=== PATIENT | male | born 1985 | race Caucasian/White ===

== ENCOUNTER 2018-08-14 19:15 | Inpatient (IN) | payer OTHER, SELFPAY ==
[~2018-08-14 19:15] MED LIST: ISOVUE-370 76%-LOCM 1 ML ONE
[2018-08-14] MEDS ORDERED: Lidocaine 1% w/Epinephrine 1:100K 20 ML VIAL ONE (19:25)
[2018-08-14] MEDS ORDERED: CEFAZOLIN 1 GM VIAL ONE (19:25)
[2018-08-14] MEDS ORDERED: Ketorolac Tromethamine 30 MG/ML VIAL ONE (19:29)
[2018-08-14] MEDS ORDERED: Morphine 2 MG/ML SYRINGE ONE ×3 (19:29→21:01)
[2018-08-14 19:46] LABS: #Basophils 0.2 thou/uL (0.0-0.2); #Eosinphils 0.2 thou/uL (0.0-0.7); #Lymphocytes 3.1 thou/uL (1.20-3.40); #Monocytes 0.9 thou/uL (0.11-0.59); #Neutrophils 13.6 thou/uL (1.40-6.50); %Basophils 0.8 % (0.0-1.0); %Eosinophils 0.9 % (0.0-10.0); %Lymphocytes 17.1 % (21.0-51.0); %Neutrophils 76.2 % (42.0-75.0); Hemoglobin 16.7 g/dL (14.0-18.0); Mean Corpuscular Hemoglobin 31.7 pg (27.0-31.0); Mean Corpuscular Volume 93.2 fL (78.0-98.0); Mean Platelet Volume 8.1 fL (7.4-10.4); Platelet Count 307 thou/uL (130-400); Red Blood Cell (RBC) Count 5.26 mill/uL (4.70-6.10); White Blood Cell (WBC) Count 17.9 thou/uL (4.8-10.8)
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
[2018-08-14 19:55] LABS: Bilirubin Negative (Negative); Blood, Urine Trace (Negative); Clarity CLEAR (Clear); Glucose, Urine (Dipstick) Negative (Negative); Leukocyte Negative (Negative); Nitrite Negative (Negative); Protein, Urine (Dipstick) Negative (Neg-Trace); Specific Gravity, Urine 1.003 (1.002-1.036); Urobilinogen 0.2 mg/dL (0.2-1.0)
[2018-08-14 19:58] LABS: Bacteria/HPF None Seen HPF (None Seen); Hyaline Casts/LPF 0-3 HYALINE CAST LPF (0-3 Hyaline); Pathc Cast-AUWi Flag 0.43 (0-2.49); RBC/HPF 0-3 HPF (0-3); Squamous Epithelial None Seen HPF (0-3); WBC/HPF None Seen HPF (0-3)
[2018-08-14 20:03] LABS: Amphetamine Not Detected (NotDetected); Barbiturates Screen Not Detected (NotDetected); Benzodiazepine Screen Not Detected (NotDetected); Cocaine Metabolite Screen Not Detected (NotDetected); Medtox Control Line Valid? VALID (VALID); Medtox Reader # READER 1; Methadone Not Detected (NotDetected); Methamphetamine Not Detected (NotDetected); Opiate Screen Not Detected (NotDetected); Oxycodone Screen Not Detected (NotDetected); Phencyclidine (PCP) Not Detected (NotDetected); THC/Cannabinoid Screen Not Detected (NotDetected); Tricyclic Screen Not Detected (NotDetected)
[2018-08-14 20:03] LABS: ALT (SGPT) 14 U/L (8-55); AST (SGOT) 24 U/L (5-34); Albumin 4.7 g/dL (3.5-5.0); Alkaline Phosphatase 63 U/L (40-150); Anion Gap 17 mmol/L (10-20); BUN (Urea Nitrogen) 7 mg/dL (8.9-20.6); Bilirubin, Total 0.4 mg/dL (0.2-1.2); Calc. Creatinine Clearance 0 mL/min (70-130); Calcium 9.2 mg/dL (7.8-10.44); Carbon Dioxide 19 mmol/L (22-29); Chloride 107 mmol/L (98-107); Estimated GFR-MDRD Greater than 90; Globulin 2.8 g/dL (2.4-3.5); Glucose 126 mg/dL (70-105); Potassium 3.3 mmol/L (3.5-5.1); Protein, Total 7.5 g/dL (6.0-8.3); Sodium 140 mmol/L (136-145)
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
[2018-08-14 20:13] LABS: Acetaminophen Less than 6.0 mcg/mL (10.0-30.0); Alcohol 122 mg/dL (Less than 10); Salicylate Less than 8.0 mg/dL (15.0-30.0)
[2018-08-14] MEDS ORDERED: KETAMINE 100 MG/ML (5ML VIAL) ONE (21:20)
[2018-08-14] MEDS ORDERED: Midazolam HCl 2 mg/2 ml Vial ONE (21:29)
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
[2018-08-15] MEDS ORDERED: Morphine 2 MG/ML SYRINGE SLOW IVP PRN (00:08)
[2018-08-15] MEDS ORDERED: Dextrose 50% Abboject 50 ML SYRINGE SLOW IVP PRN (00:08)
[2018-08-15] MEDS ORDERED: Cyclobenzaprine 10 MG TAB PO PRN (00:08)
[2018-08-15] MEDS ORDERED: Ondansetron ODT 4 MG TAB PO PRN (00:08)
[2018-08-15] MEDS ORDERED: Ondansetron PF 4 MG/2 ML Vial IVP PRN (00:08)
[2018-08-15] MEDS ORDERED: Dextrose 5% in Water 1,000 ML IV PRN (00:08)
[2018-08-15] MEDS: Sodium Chloride 0.9% 1,000 ML IV SCH ×2 (00:19→10:42)
[2018-08-15] MEDS: Acetaminophen 1,000 MG in Premix Bag 1 BAG IVPB SCH ×3 (00:41→13:53)
[2018-08-15] MEDS: Ketorolac Tromethamine 30 MG/ML VIAL IVP SCH ×3 (00:42→13:39)
[2018-08-15 02:00] VITALS: BMI 29.2
[2018-08-15 05:53] LABS: #Lymphocytes 2.5 thou/uL (1.20-3.40); #Monocytes 1.2 thou/uL (0.11-0.59); #Neutrophils 8.4 thou/uL (1.40-6.50); %Basophils 0.3 % (0.0-1.0); %Eosinophils 0.3 % (0.0-10.0); %Lymphocytes 20.5 % (21.0-51.0); %Monocytes 9.7 % (0.0-10.0); %Neutrophils 69.2 % (42.0-75.0); Hemoglobin 12.8 g/dL (14.0-18.0); Mean Corpuscular HGB CONC 33.8 g/dL (32.0-36.0); Mean Corpuscular Hemoglobin 31.3 pg (27.0-31.0); Mean Corpuscular Volume 92.5 fL (78.0-98.0); Mean Platelet Volume 8.1 fL (7.4-10.4); Platelet Count 228 thou/uL (130-400); RBC Distribution Width 11.9 % (11.5-14.5); White Blood Cell (WBC) Count 12.2 thou/uL (4.8-10.8)
[2018-08-15 06:07] LABS: Anion Gap 13 mmol/L (10-20); BUN (Urea Nitrogen) 9 mg/dL (8.9-20.6); Calc. Creatinine Clearance 184 mL/min (70-130); Calcium 8.4 mg/dL (7.8-10.44); Carbon Dioxide 22 mmol/L (22-29); Chloride 107 mmol/L (98-107); Estimated GFR-MDRD Greater than 90; Glucose 105 mg/dL (70-105); Sodium 138 mmol/L (136-145)
[2018-08-15] MEDS ORDERED: CEFAZOLIN 2 GM/50 ML BAG IVPB SCH (07:30)
[2018-08-15] MEDS ORDERED: Fentanyl 250 MCG/5 ML VIAL ONE (07:45)
[2018-08-15] MEDS ORDERED: CEFAZOLIN 2 GM/50 ML BAG ONE (07:48)
--- NOTE | 2018-08-15 07:48 | RAD ---
RIGHT HUMRUS 3 VIWES: History A 32-year-old male with a history of followup fracture. There is a very markedly displaced and angulated comminuted mid humeral shaft fracture with much wors ening in position and alignment from the 08/14/2018 study. IMPRESSION: Much worsening positioning and alignment of the comminuted right humeral shaft fracture from the prio r study. POS: [facility]
[2018-08-15] MEDS ORDERED: Albumin 5% 500 ML ONE (09:20)
[2018-08-15] MEDS ORDERED: Phenylephrine HCL 10 MG/ML VIAL ONE (10:14)
[2018-08-15] MEDS ORDERED: CEFAZOLIN/Water 2 GM/20 ML SYRINGE SLOW IVP SCH (11:15)
[2018-08-15] MEDS ORDERED: Ondansetron PF 4 MG/2 ML Vial ONE (11:30)
[2018-08-15] MEDS ORDERED: Lidocaine 1% PF 5 ML VIAL ONE ×2 (11:30)
[2018-08-15] MEDS ORDERED: Vecuronium 10 MG VIAL ONE (11:30)
[2018-08-15] MEDS ORDERED: PHENYLEPHRINE-NS 100 MCG/ML 10 ML SYRINGE ONE (11:30)
[2018-08-15] MEDS ORDERED: PROVENTIL INHALER 6.7 G (200 INHALATIONS) ONE (11:30)
[2018-08-15] MEDS ORDERED: Ketorolac Tromethamine 30 MG/ML VIAL ONE (11:30)
[2018-08-15] MEDS ORDERED: Dexamethasone 20 MG/5 ML VIAL ONE (11:30)
[2018-08-15] MEDS ORDERED: PROPOFOL 200 MG/20 ML VIAL ONE (11:30)
[2018-08-15] MEDS ORDERED: Glycopyrrolate 0.2 MG/ML 5 ML SYRINGE ONE (11:30)
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
--- NOTE | 2018-08-15 12:07 | RAD ---
RIGHT HUMERUS 2 VIEWS: HISTORY: ORIF. COMPARISON: Humerus radiograph from same day. FINDINGS: Satisfactory postop appearance with plate and screw fixation as well as fragmentary screw fixation of the humeral fracture. IMPRESSION: Satisfactory postoperative appearance. POS: [facility]
[2018-08-15] MEDS ORDERED: Promethazine HCl 25 MG/ML VIAL IM PRN (12:16)
[2018-08-15] MEDS ORDERED: Promethazine HCl 25 MG/ML VIAL SLOW IVP PRN (12:16)
[2018-08-15] MEDS ORDERED: Morphine Sulfate 2 MG/ML SYRINGE SLOW IVP PRN (12:16)
[2018-08-15] MEDS ORDERED: Meperidine HCl/PF 25 MG/ML VIAL SLOW IVP PRN (12:16)
[2018-08-15] MEDS ORDERED: PACU-Morphine 4MG/ML VIAL SLOW IVP PRN (12:16)
[2018-08-15] MEDS ORDERED: Ondansetron HCl/PF 4 MG/2 ML Vial IVP PRN (12:16)
[2018-08-15] MEDS ORDERED: HYDROmorphone 2 MG/ML VIAL SLOW IVP PRN (12:16)
--- NOTE | 2018-08-15 12:31 | RAD ---
RIGHT WRIST 2 VIEWS: HISTORY: ORIF. COMPARISON: None. FINDINGS: Satisfactory postoperative appearance of fractured distal radius. IMPRESSION: Satisfactory postoperative appearance. POS: [facility]
[2018-08-15] MEDS ORDERED: Morphine 4 MG/ML VIAL SLOW IVP SCH (14:15)
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
[2018-08-15] MEDS ORDERED: traMADol HCl 50 MG TAB PO PRN ×2 (17:28)
[2018-08-15] MEDS: CEFAZOLIN 2 GM/50 ML-DEXTROSE 2 GM in Premix Bag 1 BAG IVPB SCH (18:18)
[2018-08-15] MEDS: HYDROcodone/Acetaminophen 5/325 mg Tablet PO PRN (18:45)
--- NOTE | 2018-08-15 19:16 | OP ---
PREOPERATIVE DIAGNOSES: Comminuted supracondylar humerus fracture with shaft extension on the right side and comminuted intraarticular distal radius fracture, right. SURGICAL PROCEDURE: Open reduction and internal fixation of right supracondylar humerus, open reduct ion and internal fixation of right intra-articular distal radius. SURGEON: Abdirahman Pathak M.D. TANKAGE GRINDER: ____ BLOOD LOSS: About 350 for the entire procedure both operations. SPECIMEN: None. DRAINS: None. COMPLICATIONS: None. OPERATION TECHNIQUE: The patient was taken to the operating room, where general anesthesia was induc ed. The patient was placed in left lateral decubitus position. Right arm was prepped and draped in the usual sterile fashion. He received Ancef preoperatively. We made an extensile posterior approach after Yomi. The radial nerve was identified. He had radial nerve palsy preoperatively. The radia l nerve appeared to be directly in the fracture site. I extricated the nerve from the fracture site, protected it throughout the procedure. There were five fragments. One fragment was small and was di scarded. The remainder of the fragments were lagged together and then after lagging all the pieces t ogether, I span all the pieces with a large Synthes lateral condyle plate. 3 screws above the radial nerve, had excellent fixation. Irrigation was performed. X-rays were obtained, which showed approp riate position of the screws and reduction. Fascia was repaired with #1 Vicryl, subcu with 2-0 Vicry l, and the skin was closed with marcos. Attention was then turned to the wrist. I reprepped and dr aped. After placing them on a hand table, I made a standard FCR approach to the distal radius. I did not use a tourniquet as we did not want to compress the tissues proximally ____ the rotator quadratu s peeled from radial to ulnar. Fracture was distracted, irrigated and removed hematoma from the fract ure. Fracture was anatomically reduced. A Synthes 5-hole, ____ 3-hole shaft plate was applied, chec ked on biplane fluoroscopy. Screws inserted in the usual technique. Care was taken to make sure scr ew length was appropriate. Irrigation performed. Hemostasis obtained. Subcutaneous tissue closed w ith 2-0 Vicryl, the skin was closed with marcos. Sterile dressings applied and the patient was plac ed on a long arm splint.
[2018-08-15] MEDS: Ibuprofen 800 MG TAB PO SCH (21:05)
[2018-08-15] MEDS: Acetaminophen 500 MG TAB PO SCH (21:05)
[2018-08-16] MEDS: CEFAZOLIN 2 GM/50 ML-DEXTROSE 2 GM in Premix Bag 1 BAG IVPB SCH ×2 (00:11→08:32)
[2018-08-16] MEDS: Acetaminophen 500 MG TAB PO SCH ×3 (00:11→08:32)
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
[2018-08-16] MEDS: HYDROcodone/Acetaminophen 5/325 mg Tablet PO PRN (04:06)
[2018-08-16] MEDS: Ibuprofen 800 MG TAB PO SCH (05:43)
[2018-08-16 05:49] LABS: #Lymphocytes 2.7 thou/uL (1.20-3.40); #Monocytes 1.6 thou/uL (0.11-0.59); %Eosinophils 0.2 % (0.0-10.0); %Lymphocytes 16.3 % (21.0-51.0); %Neutrophils 73.5 % (42.0-75.0); Mean Corpuscular HGB CONC 33.3 g/dL (32.0-36.0); Mean Corpuscular Hemoglobin 30.9 pg (27.0-31.0); Mean Corpuscular Volume 92.7 fL (78.0-98.0); Mean Platelet Volume 8.1 fL (7.4-10.4); Platelet Count 240 thou/uL (130-400); RBC Distribution Width 11.8 % (11.5-14.5); Red Blood Cell (RBC) Count 3.88 mill/uL (4.70-6.10); White Blood Cell (WBC) Count 16.3 thou/uL (4.8-10.8)
[2018-08-16 06:09] LABS: Anion Gap 10 mmol/L (10-20); BUN (Urea Nitrogen) 14 mg/dL (8.9-20.6); Calc. Creatinine Clearance 165 mL/min (70-130); Calcium 8.9 mg/dL (7.8-10.44); Carbon Dioxide 27 mmol/L (22-29); Chloride 104 mmol/L (98-107); Estimated GFR-MDRD Greater than 90; Glucose 137 mg/dL (70-105); Phosphorus 2.5 mg/dL (2.3-4.7); Potassium 4.4 mmol/L (3.5-5.1); Sodium 137 mmol/L (136-145)
[2018-08-16] MEDS ORDERED: Senokot 8.6 MG TAB PO PRN (08:06)
[2018-08-16] MEDS ORDERED: Polyethylene Glycol 3350 17 GM Packet PO SCH (09:00)
[2018-08-16] MEDS ORDERED: Gabapentin 300 MG CAP PO SCH (09:00)
[2018-08-16 12:00] VITALS: BP 126/77; TEMP 98
[2018-08-16] MEDS ORDERED: Acetaminophen 325 MG TAB PO SCH (12:00)
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
== END 2018-08-16 13:35 | disposition home or self-care (01) | DRG 493 ==
LOC: ERS 19:15 → SURG A 22:38
PROVIDERS: ADMIT Surgery; ATTEND Surgery
PROC: 0HQ0XZZ Repair Scalp Skin, External Approach (ICD-10-PCS; 2018-08-14)
PROC: 0PSF04Z Reposition Right Humeral Shaft with Internal Fixation Device, Open Approach (ICD-10-PCS; principal; 2018-08-15)
PROC: 0PSH04Z Reposition Right Radius with Internal Fixation Device, Open Approach (ICD-10-PCS; 2018-08-15)
DX: S12.600A Unspecified displaced fracture of seventh cervical vertebra, initial encounter for closed fracture (principal); S06.0X9A Concussion with loss of consciousness of unspecified duration, initial encounter; S52.571A Other intraarticular fracture of lower end of right radius, initial encounter for closed fracture; S42.421A Displaced comminuted supracondylar fracture without intercondylar fracture of right humerus, initial encounter for closed fracture; S52.611A Displaced fracture of right ulna styloid process, initial encounter for closed fracture; V27.4XXA Motorcycle driver injured in collision with fixed or stationary object in traffic accident, initial encounter; Y92.488 Other paved roadways as the place of occurrence of the external cause; S01.01XA Laceration without foreign body of scalp, initial encounter; F17.210 Nicotine dependence, cigarettes, uncomplicated; F10.120 Alcohol abuse with intoxication, uncomplicated; R41.3 Other amnesia
CPT/HCPCS: 12006; 29125; 36415; 51702; 70450; 71045; 71260; 72125; 74177; 76001; 80048; 80053; 80306; 80307; 81003; 81015; 83735; 84100; 85025; 86850; 86900; 86901; 94760; 96365; 96366; 96374; 96375; 96376; C1713; G0390; G8978-GP-CI; G8979-GP-CI; G8980-GP-CI; G8987-GO-CI; G8988-GO-CI; G8989-GO-CI; J0131; J0690; J1100; J1885; J2001; J2250; J2270; J2370; J2405; J2704; J3010; P9045

== ENCOUNTER 2018-09-29 12:43 | Outpatient (CLI) | payer MEDICAID ==
--- NOTE | 2018-09-29 15:13 | RAD ---
CERVICAL SPINE FIVE VIEWS: INDICATIONS: History of C6-C7 fracture. COMPARISON: CT cervical spine dated 08/14/2018. FINDINGS: The Swimmer's lateral projection identifies the C7 vertebral level. The facet complex fractures at C 7 do not appear appreciably changed in position. Spinal alignment is preserved. Prevertebral soft t issues appear within normal limits. No additional acute fracture is evident. The lateral masses are symmetric. IMPRESSION: C7 facet complex fractures do not appear appreciably changed from the comparison CT. No new acute os seous abnormality demonstrated. POS: [facility]
== END 2018-09-29 12:44 | disposition home or self-care (01) ==
LOC: TBSIIMAG 12:43
PROVIDERS: ATTEND Surgery
DX: S12.600A Unspecified displaced fracture of seventh cervical vertebra, initial encounter for closed fracture (principal)
CPT/HCPCS: 72040

== ENCOUNTER 2018-10-29 08:25 | Outpatient (CLI) | payer MEDICAID ==
--- NOTE | 2018-10-29 09:42 | RAD ---
CERVICAL SPINE RADIOGRAPHS FOUR VIEWS: 10/29/2018 PROVIDED CLINICAL HISTORY: Follow up fracture. COMPARISON: 09/29/2018 FINDINGS: Cervical alignment appears normal. Vertebral body heights appear preserved. Known facet fractures a t C7 are radiographically inconspicuous. No prevertebral soft tissue swelling apparent. The visuali zed lung apices appear clear. IMPRESSION: Suboptimal evaluation of known C7 facet fractures. POS: [facility]
== END 2018-10-29 08:26 | disposition home or self-care (01) ==
LOC: TBSI PT 08:25
PROVIDERS: ATTEND Surgery
DX: S12.9XXA Fracture of neck, unspecified, initial encounter (principal); S12.600A Unspecified displaced fracture of seventh cervical vertebra, initial encounter for closed fracture
CPT/HCPCS: 72040